=== PATIENT | male | born 1980 | race Caucasian/White ===

== ENCOUNTER 2017-10-13 18:23 | Emergency (ER) | payer MEDICAID ==
[~2017-10-13] VITALS: Ht 180.3 cm; Wt 115.0 kg
[2017-10-13 18:37] VITALS: BP 129/80
== END 2017-10-13 19:29 | disposition home or self-care (01) ==
LOC: ED 19:00
DX: H92.01 Otalgia, right ear (principal); F17.200 Nicotine dependence, unspecified, uncomplicated
CPT/HCPCS: 99283

== ENCOUNTER 2018-03-13 00:42 | Emergency (ER) | payer MEDICAID ==
[~2018-03-13] VITALS: Ht 180.3 cm; Wt 115.5 kg
[2018-03-13 00:46] VITALS: BP 133/84
== END 2018-03-13 02:42 | disposition home or self-care (01) ==
LOC: ED 02:30
DX: M25.511 Pain in right shoulder (principal); F17.200 Nicotine dependence, unspecified, uncomplicated
CPT/HCPCS: 71046; 99284